=== PATIENT | female | born 1990 | race Two or more races ===

== ENCOUNTER 2023-04-27 11:33 | Emergency (ER) | payer OTHER ==
[~2023-04-27] VITALS: Ht 149.9 cm; Wt 60.0 kg
[2023-04-27 12:41] VITALS: TEMP 98.5
[2023-04-27 13:31] LABS: EOSINOPHILS % (AUTO) 0.7 % (1.0-6.0); HEMATOCRIT 43.1 % (36-46); HEMOGLOBIN 14.7 g/dL (12.0-16.0); LYMPHOCYTES # (AUTO) 1.6 K/uL (1.0-4.8); MEAN CORPUSCULAR HEMOGLOBIN 31.2 pg (26.0-34.0); MEAN CORPUSCULAR HGB CONC 34.1 G/dL (31.0-37.0); MEAN CORPUSCULAR VOLUME 91 fL (80-100); MONOCYTES # (AUTO) 0.8 K/uL (0.1-1.0); MONOCYTES % (AUTO) 6.3 % (2.0-9.0); NEUTROPHILS # (AUTO) 10.6 K/uL (1.8-7.7); PLATELET COUNT (AUTO) 258 K/uL (150-450); RED BLOOD CELL COUNT(AUTO) 4.72 MIL/uL (4.00-5.20); RED CELL DISTRIBUTION WIDTH 14.1 % (11.5-14.5)
[2023-04-27 15:10] LABS: COVID AG,FIA SOURCE NASAL SWAB
[2023-04-27 16:30] VITALS: BP 112/67; PULSE 82; RESP 16
== END 2023-04-27 19:07 ==
LOC: EMS 11:35 → UNDOADMIN 13:58 → AHU 13:58 → EMS 19:07
DX: Z20.822 Contact with and (suspected) exposure to COVID-19; Z98.890 Other specified postprocedural states
CPT/HCPCS: 74176; 84702; 85025; 99284